=== PATIENT | female | born 1990 | race Caucasian/White ===

== ENCOUNTER 2025-01-05 20:49 | Emergency (ER) | payer OTHER, SELFPAY ==
[2025-01-05] VITALS (8 sets, daily range): BP systolic 99–117; BP diastolic 52–62; PULSE 48–59; RESP 18–23; TEMP 36.2; O2SAT 96–100; BMI 27.4
--- NOTE | 2025-01-05 21:06 | EKG_ITS ---
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
[2025-01-05] MEDS: ONDANSETRON 4 MG/2 ML INJ IV (21:21)
[2025-01-05 21:25] LABS: Add Manual Diff / Slide Review NO; Basophils Absolute Auto 0 /uL (0-100); Basophils Percent Auto 0.2 % (0-2); Eosinophils Absolute Auto 0 /uL (0-450); Eosinophils Percent Auto 0.1 % (2-4); Hemoglobin 14.9 g/dL (12.0-16.0); Lymphocytes Absolute Auto 800 /uL (1100-4500); Lymphocytes Percent Auto 6.6 % (25-40); Mean Corpuscular Hemoglobin 31.5 PG (26-34); Mean Corpuscular Volume 92.6 fL (80-100); Monocytes Absolute Auto 400 /uL (0-900); Monocytes Percent Auto 3.3 % (3-14); Neutrophils Absolute Auto 10400 /uL (1500-7000); Neutrophils Percent Auto 89.8 % (50-75); Platelet Count 308 X10^3/uL (150-400); Red Blood Cell Count 4.75 X10^6/uL (4.0-5.2); Red Cell Distribution Width 12.6 % (11.6-14.8); White Blood Cell Count 11.6 X10^3/uL (4.5-11.0)
[2025-01-05 21:31] LABS: Bacteria Urine Many (>30); Mucus Urine 3+ (Negative); Squamous Epithelial Cell Urine 5-10 /HPF (0-5/HPF); Urine Volume 10mL (spun); WBC Urine 0-1/HPF (0-5/HPF)
[2025-01-05 21:32] LABS: Hyaline Casts Urine 0-1/LPF; RBC Urine 0-1/HPF (0-5/HPF)
[2025-01-05 21:32] LABS: Alanine Aminotransferase 46 IU/L (<35); Albumin 5.1 g/dL (3.5-5.0); Albumin Globulin Ratio 1.5 (1.0-2.8); Alkaline Phosphatase 75 U/L (38-126); Aspartate Aminotransferase 74 IU/L (14-36); Bilirubin Total 1.1 mg/dL (0.2-1.3); Blood Urea Nitrogen 18 mg/dL (7-17); Calcium 9.8 mg/dL (8.4-10.2); Carbon Dioxide 24 mmol/L (22-32); Chloride 102 mmol/L (98-107); Estimated Glomerular Filt Rate > 60 mL/min (>60); Globulin 3.5 g/dL (1.7-4.1); Glucose 132 mg/dL (70-100); HEMOLYSIS < 15 (0-50); Lipase 71 U/L (23-300); Potassium 3.2 mmol/L (3.4-5.1); Sodium 140 mmol/L (137-145); Total Protein 8.6 g/dL (6.3-8.2)
[2025-01-05 21:34] LABS: Culture Indicated Urine Cult Not Indicated
[2025-01-05] MEDS: KETOROLAC 30 MG/ML VIAL 15 MG IV (21:39)
--- NOTE | 2025-01-05 22:48 | ED.ABDPAIN ---
HPI - Abdominal Pain General Chief Complaint: Abdominal Pain Stated Complaint: abd px Time Seen by Provider: 01/05/25 22:41 Source: patient, RN notes reviewed and old records reviewed Mode of arrival: Ambulatory History of Present Illness HPI narrative: 34-year-old female who presents with complaint of epigastric pain radiating to the right upper quadrant. Patient states squeezing sensation started shortly after or during eating. No fevers or chills. No vomiting. Patient states he levels very similar to prior episodes of biliary colic and has had ultrasound in the past that showed gallstones. Patient states this feels the same. Denies any shortness of breath. Denies any diarrhea or constipation. No new urinary symptoms such as dysuria, urgency frequency or incontinence. No flank pain. Does rate of little bit in the right upper quadrant towards her back. Patient states only daily medications are dextroamphetamine. She has not had that today. Patient states no prior surgeries. No known drug allergies. No regular tobacco, occasional alcohol, no recreational drugs. She has been following with surgery where she lives in [place]. Related Data Home Medications Medication Instructions Recorded Confirmed dextroamphetamine-amphetamine ER PO QAM 01/05/25 15 mg 24hr capsule,extend release ibuprofen 800 mg tablet mg 01/05/25 Allergies Allergy/AdvReac Type Severity Reaction Status Date / Time No Known Drug Allergies Allergy Verified 01/05/25 21:03 Review of Systems Review of Systems ROS Unobtainable: All systems reviewed & are unremarkable except as noted in HPI and below Patient History Social History Smoking Status: Never smoker Smoking Status: Never smoker Exam Narrative Exam Narrative: GENERAL: Alert and oriented x three, moderate distress. HEENT: Head normocephalic, atraumatic, EOMI, pupils reactive, face symmetric, moist mucous membranes NECK: Supple, full range of motion CARDIOVASCULAR: Regular rate and rhythm without murmurs, rubs or gallops. RESPIRATORY: Breath sounds equal bilaterally, no wheezes rales or rhonchi. ABDOMEN: Soft, positive for right upper quadrant tenderness. Normoactive bowel sounds all 4 quadrants. No guarding or rebound, rigidity, no mass : No CVA tenderness EXTREMITIES: Normal range of motion, no clubbing or edema. Neurovascularly intact NEUROLOGICAL: Cranial nerves II through XII grossly intact. Moving all extremities SKIN: Warm, dry, no petechiae, no rashes or lesions. Initial Vital Signs Initial Vital Signs: Vital Signs Temperature 97.2 F L 01/05/25 21:00 Pulse Rate 50 L 01/05/25 21:00 Respiratory Rate 22 01/05/25 21:00 Blood Pressure 105/58 L 01/05/25 21:00 Pulse Oximetry 99 01/05/25 21:00 Oxygen Delivery Method Room Air 01/05/25 21:00 Course Orders Ordered: ED Orders 01/05/25 21:00 Urine Microscopic Stat 01/05/25 21:02 EKG-12 Lead Stat 01/05/25 21:04 Complete Blood Count AUTO DIFF Stat Comprehensive Metabolic Panel Stat Lipase Stat Discontinued Medications Ketorolac Tromethamine (Ketorolac 30 Mg/Ml Vial) 15 mg IV NOW ONE Stop: 01/05/25 21:30 Last Admin: 01/05/25 21:39 Dose: 15 mg Documented By: RIKKI Morphine Sulfate (Morphine 4 Mg/Ml Inj) 4 mg IV NOW ONE Stop: 01/05/25 22:48 Last Admin: 01/05/25 22:54 Dose: 4 mg Documented By: KATHERINE Ondansetron HCl (Ondansetron 4 Mg/2 Ml Inj) 4 mg IV NOW PRN PRN Reason: Nausea And Vomiting Last Admin: 01/05/25 21:21 Dose: 4 mg Documented By: RIKKI Ondansetron HCl (Ondansetron 4 Mg Odt) 4 mg PO NOW PRN PRN Reason: Nausea And Vomiting Vital Signs Vital signs: Vital Signs - 8 hr 01/05/25 21:15 01/05/25 21:30 01/05/25 21:30 Pulse Rate 51 L 49 L Respiratory Rate 18 Blood Pressure 103/59 L Pulse Oximetry 100 100 Oxygen Delivery Method 01/05/25 22:00 01/05/25 22:00 01/05/25 22:30 Pulse Rate 48 L 50 L Respiratory Rate 18 21 Blood Pressure 109/62 Pulse Oximetry 99 98 Oxygen Delivery Method Room Air 01/05/25 22:30 01/05/25 23:00 01/05/25 23:01 Pulse Rate 53 L Respiratory Rate 20 Blood Pressure 117/58 L 99/59 L Pulse Oximetry 96 Oxygen Delivery Method 01/05/25 23:30 01/05/25 23:30 Pulse Rate 59 L Respiratory Rate 23 Blood Pressure 109/52 L Pulse Oximetry 96 Oxygen Delivery Method MDM - Abdominal Pain Lab Data 01/05/25 21:04 01/05/25 21:04 Labs: Lab Results 01/05/25 01/05/25 Range/Units 21:00 21:04 WBC 11.6 H (4.5-11.0) X10^3/uL RBC 4.75 (4.0-5.2) X10^6/uL Hgb 14.9 (12.0-16.0) g/dL Hct 44.0 (36-46) % MCV 92.6 (80-100) fL MCH 31.5 (26-34) PG MCHC 34.0 (30-36) % RDW 12.6 (11.6-14.8) % Plt Count 308 (150-400) X10^3/uL Neut % (Auto) 89.8 H (50-75) % Lymph % (Auto) 6.6 L (25-40) % [place] % (Auto) 3.3 (3-14) % Eos % (Auto) 0.1 L (2-4) % Baso % (Auto) 0.2 (0-2) % Neut # (Auto) 29159 H (8247-2287) /uL Lymph # (Auto) 800 L (7970-3841) /uL [place] # (Auto) 400 (0-900) /uL Eos # (Auto) 0 (0-450) /uL Baso # (Auto) 0 (0-100) /uL Sodium 140 (137-145) mmol/L Potassium 3.2 L (3.4-5.1) mmol/L Chloride 102 (98-107) mmol/L Carbon Dioxide 24 (22-32) mmol/L BUN 18 H (7-17) mg/dL Creatinine 0.72 (0.52-1.04) mg/dL Estimated GFR > 60 (>60) mL/min BUN/Creatinine Ratio 25.0 H (6-22) Glucose 132 H (70-100) mg/dL Calcium 9.8 (8.4-10.2) mg/dL Total Bilirubin 1.1 (0.2-1.3) mg/dL AST 74 H (14-36) IU/L ALT 46 H (<35) IU/L Alkaline Phosphatase 75 (38-126) U/L Total Protein 8.6 H (6.3-8.2) g/dL Albumin 5.1 H (3.5-5.0) g/dL Globulin 3.5 (1.7-4.1) g/dL Albumin/Globulin Ratio 1.5 (1.0-2.8) Lipase 71 (23-300) U/L Urine RBC 0-1/hpf (0-5/HPF) Urine WBC 0-1/hpf (0-5/HPF) Ur Squamous Epith Cells 5-10 /hpf H (0-5/HPF) Urine Bacteria Many (>30) H (None) Hyaline Casts 0-1/lpf (None) Urine Mucus 3+ H (Negative) Ur Culture Indicated? Cult not indicated Vol Urine Centrifuged 10ml (spun) Point of care testing: Point of Care Testing Test Results Negative Urine Dip Bedside Urine Glucose Negative Bedside Urine Bilirubin - Negative Bedside Urine Ketone +++ 80 Urine Specific [place] 1.025 Bedside Urine Occult Blood - Negative Bedside Urine pH 6.0 Bedside Urine Protein + 30 Bedside Urine Urobilinogen - Negative Bedside Urine Nitrite - Negative Bedside Urine Leukocytes - Negative Esterase ECG Data Attestation: I personally reviewed and interpreted this ECG as follows: Interpretation: EKG shows sinus bradycardia rate of 46 UT 124 QRS of 100 QTC of [address] elevation or depression. [facility] Narrative Medical decision making narrative: 34-year-old female history of known gallstones presents with epigastric right upper quadrant pain states feels very similar to prior episodes. Patient has not been able to control her pain so came for evaluation. She has been afebrile, bradycardic, nontoxic. Discussed with patient reviewed her labs. Discussed we would like to obtain ultrasound imaging as there is potential for cholelithiasis and a but also cholecystitis she was tender on exam. Patient prefers not to discussed we will give 1 additional dose of pain medication if pain is not controlled then she should have ultrasound. Patient also notes she has had bradycardia frequently particularly when she was in pain with these episodes Labs show mild white count 11.6 hemoglobin of 14 platelets of 308. Potassium slightly low at 3.2 otherwise appropriate electrolytes BUN 18 creatinine 0.72 glucose of 132 bilirubin is 1.1 AST is slightly elevated at 74 and ALT at 46. Lipase is 71. Negative urine . Point of care urine positive ketones, protein no nitrates or leukocyte esterase. Urine microscopy shows 1 red cell 1 white cell 5-10 squamous many bacteria 3+ mucus. EKG shows sinus bradycardia rate of 46 UT 124 QRS of 100 QTC of [address] elevation or depression. Patient had antiemetic, Toradol with minimal improvement was given a dose of morphine. Patient's pain significantly improved and she would like to discharge home. Discharge Plan Departure Patient Disposition: Home Clinical Impression: Abdominal pain, Hx of cholelithiasis Activity Restrictions/Additional Instructions: Follow up with your surgeon if your symptoms are persisting. If you are having persistent severe pain you should have repeat imaging as you can sometimes develop cholecystitis or an infection of the gallbladder or sometimes gallstones can get stuck in the neck of the gallbladder so that it could not drain properly. Please return or go to the nearest ER for fevers, rapidly worsening pain, vomiting, black or bloody stools, lightheadedness or passing out, chest pain or shortness of breath or other new or concerning changes. Prescriptions: No Action ibuprofen 800 mg Tablet dextroamphetamine-amphetamine 15 mg capsule,extended release 24hr PO QAM Referrals: Miscellaneous,Doctor, MD [Primary Care Provider] - Stand Alone Forms: Patient Portal/API/Survey
[2025-01-05] MEDS: MORPHINE 4 MG/ML INJ IV (22:54)
== END 2025-01-05 23:47 | disposition home or self-care (01) ==
PROVIDERS: Emergency Provider Emergency Medicine
DX: R10.13 Epigastric pain (principal); K80.20 Calculus of gallbladder without cholecystitis without obstruction; R00.1 Bradycardia, unspecified
CPT/HCPCS: 36415; 80053; 81003; 81015; 81025; 83690; 85025; 93005; 93010; 96374; 96375; 99284; J1885; J2270; J2405